=== PATIENT | male | born 1980 | race Caucasian/White ===

== ENCOUNTER 2018-12-01 17:14 | Emergency (ER) | payer OTHER ==
[2018-12-01 18:06] VITALS: RESP 16; TEMP 98.4
[2018-12-01 18:34] VITALS: BP 154/112; PULSE 87; O2SAT 96
== END 2018-12-01 18:13 | disposition home or self-care (01) | DRG 914 ==
LOC: ED 17:14
DX: S67.21XA Crushing injury of right hand, initial encounter (principal); W23.0XXA Caught, crushed, jammed, or pinched between moving objects, initial encounter
CPT/HCPCS: 73130; 99282; 99283